=== PATIENT | female | born 1940 | race Caucasian/White ===

== ENCOUNTER → 2017-01-15 | Outpatient (CLI) | payer OTHER ==
[~2017-01-15] MED LIST: ALLERGY SHOTS; CLARITIN10 M3 DOB; FUROSEMIDE40 MG PO; HYDROCODON-ACE1 EAC5 PO; MAGNESIUM ZINC PO; POTASSIUM CHLO20 ME1 PO; SYNTHROID PO; VITAMIN B12-FO1 EACH PO; VITAMIN D PO
== END | disposition home or self-care (01) ==
LOC: CECH 13:07
DX: I07.1 Rheumatic tricuspid insufficiency (principal)
CPT/HCPCS: 93306